=== PATIENT | male | born 1960 | race Caucasian/White ===

== ENCOUNTER → 2016-08-30 | Outpatient (CLI) | payer BC ==
[~2016-08-30] MED LIST: ASPIRIN81 M1 PO; ATENOLOL50 MG PO; CRESTOR PO; LEVITRA5 MG PO; LIDODERM30 EA TOP; LISINOPRIL5 MG PO; LOVAZA1 G PO; MOBIC PO; MULTIVITAMIN1 UDCAP PO; PANTOPRAZOLE SO40 MG PO; SIMVASTATIN40 MG PO; VIAGRA PO; VOLTAREN GEL
--- NOTE | ~2016-08-30 | MR176 ---
[facility] A Service of [facility] & [facility] RADIOLOGY TEXT RESULTS PATIENT: MAURICE COOK LOCATION: [facility] : 60 UNIT #: [id number] AGE: [address]: Tati Hickey MD SEX: M ORDER DR: [id number] [address] [address] [id number] O MR#: [id number] Acc #: [id number] NAME: MAURICE COOK. : 1960 SEX: M STUDY DATE/TIME: 08/30/2016 14:41 UNIT: [facility] ROOM: STUDY DESCRIPTION: MR Thoracic Wo Contrast Attending Physician: Tati Hickey M.D. Referring Physician: Tati Hickey M.D. Ordering Physician: Tati Hickey M.D. Primary Care Physician: Tati Hickey M.D. MRI CENTER REPORT This report is preliminary unless electronic signature is present. EXAM MRI of the thoracic spine without contrast dated 08/30/2016 COMPARISON STUDIES Plain films thoracic spine dated 08/22/2016. No prior CT or MRI thoracic spine studies. HISTORY Mid back pain particularly in the upper right side for 3 months. TECHNIQUE Multisequence multiplanar imaging of the thoracic spine was obtained without contrast. FINDINGS Vertebral body heights and alignment are preserved. Degenerative disc disease is noted at multiple levels, relatively worse at T9 and C7-T1. Cord demonstrates expected course, caliber and signal. Costovertebral and facet joint arthritic changes are noted in some of the levels. Relatively moderate to severe costovertebral joint changes are noted in bilateral T9 (right greater than left), left T9-10, left T7-8, left T6-7, bilateral T5-6. Mild facet changes are noted in bilateral T8-9, T9-10, T10-11. No significant canal stenosis. Central to right subarticular focal protrusion is noted at T8-9 with mild mass effect on the adjacent thecal sac. No significant cord compression. Tiny right subarticular T7-8 protrusion is also seen. No neuroforaminal narrowing is noted in the thoracic spine. IMPRESSION 1. Degenerative disc disease is at multiple levels, worse at T8-9 followed by T7-8. 2. Costovertebral joint arthritic changes and [facility] of [facility] & [facility] RADIOLOGY TEXT RESULTS PATIENT: MAURICE COOK LOCATION: [facility] : 60 UNIT #: [id number] AGE: [address]: Tati Hickey MD SEX: M ORDER DR: multiple levels as described above. 3. Minimal facet changes are noted in the lower T spine. 4. Refer to MRI cervical spine study for description of cervical spine findings. Dictated by... Debora Anders M.D. THIS IS AN ELECTRONICALLY VERIFIED REPORT Debora Anders M.D. at 08/31/2016 4:56 PM MANUEL/eddie TD: 08/31/2016 16:38 JOB #: [id number] MRI CENTER REPORT Page 1 of 1
--- NOTE | ~2016-08-30 | MR32 ---
[facility] A Service of [facility] & [facility] RADIOLOGY TEXT RESULTS PATIENT: MAURICE COOK LOCATION: [facility] : 60 UNIT #: [id number] AGE: [address]: Tati Hickey MD SEX: M ORDER DR: [id number] [address] [address] [id number] O MR#: [id number] Acc #: [id number] NAME: MAURICE COOK. : 1960 SEX: M STUDY DATE/TIME: 08/30/2016 14:19 UNIT: [facility] ROOM: STUDY DESCRIPTION: MR Cervical Wo Contrast Attending Physician: Tati Hickey M.D. Referring Physician: Tati Hickey M.D. Ordering Physician: Tati Hickey M.D. Primary Care Physician: Tati Hickey M.D. MRI CENTER REPORT This report is preliminary unless electronic signature is present. EXAM MRI of the cervical spine without contrast dated 08/30/2016. COMPARISON STUDIES Plain film cervical spine dated 08/22/2016. HISTORY Neck pain which increasing with bilateral upper extremity pain, right greater than left. Numbness and tingling has been going on for three months. FINDINGS Multisequence, multiplanar imaging of the cervical spine was obtained without contrast. There is disc osteophyte complexes at multiple levels. Posterior endplate osteophytes are at multiple levels, worse at C3. There appears to be mild retrolisthesis of C3 with respect to C4 and C5 with respect to C6, likely relating to posterior endplate osteophyte. Cord demonstrates normal course, caliber. Faint increased T2 signal is suspected in the sagittal T2 sequence but is not well correlated in the axials. It is unclear if it is artifactual or true cord signal change. Imaged posterior fossa and craniovertebral junction are grossly unremarkable. Pre and paravertebral soft tissues do not demonstrates any significant abnormality. C2-3: Disc osteophyte complex with small central protrusion. Left uncinate spur with moderate left facet hypertrophic change and moderate left neural foraminal narrowing. No canal stenosis. C3-4: Disc osteophyte complex with left uncinate spur. Mild bilateral facet changes are noted with severe left neural foraminal narrowing. Borderline sized to mild canal stenosis. [facility] A Service of [facility] RADIOLOGY TEXT RESULTS PATIENT: MAURICE COOK LOCATION: [facility] : 60 UNIT #: [id number] AGE: [address]: Tati Hickey MD SEX: M ORDER DR: C4-5: Disc osteophyte complex with mild bilateral facet changes and irfhndyu-ur-hrfprj left neural foraminal narrowing with borderline sized to mild canal stenosis. C5-6: Disc osteophyte complex which is asymmetrically prominent in the right central to subarticular region. Moderate canal stenosis is seen. Mild bilateral facet hypertrophic changes are noted with severe left, bilw-la-liijthpv right neural foraminal narrowing. C6-7: There is a disc osteophyte complex with left central disc herniation. This extends up to the central region of C7-T1. It is unclear if there is a disc extrusion with inferior migration from C6-7 or superior migration from C7-T1. It measures about 2.7 cm in height. There is cfwuqbxu-eu-zgbhvh canal stenosis with wuyyqksq-yi-fvcrwt left, mild right neural foraminal narrowing. Mild bilateral facet changes are seen. C7-T1: Disc extrusion as described above at C6-7 level. There is onds-os-ehmwxhee canal stenosis. Mild disc bulge is seen. No significant neural foraminal narrowing. Mild bilateral facet changes. IMPRESSION 1. Degenerative changes are noted at multiple levels. 2. There is a disc extrusion which extends from the level of C6-7 to the level C7-T1. It is unclear if it arises from C6-7 and extends inferiorly or arises from C7-T1 and extends superiorly. It total measures about 2.5 cm in height. 3. Varying degrees of canal stenosis and neural foraminal narrowing as described above. 4. Cord is displaced posteriorly at the level of C6-7 extending to C7-T1 due to the disc herniation. Faint increased T2 signal is suspected in the sagittal T2 sequence but is not well correlated in the axials. It is unclear if it is artifactual or true cord signal change. NOTE Cord signal change. Dictated by... Debora Anders M.D. THIS IS AN ELECTRONICALLY VERIFIED REPORT Debora Anders M.D. at 08/31/2016 4:56 PM CPR/tmw TD: 08/31/2016 16:36 [facility] A Service of [facility] & [facility] RADIOLOGY TEXT RESULTS PATIENT: MAURICE COOK [id number] 60 UNIT #: [id number] AGE: [address]: Tati Hickey MD SEX: M ORDER DR: JOB #: [id number] MRI CENTER REPORT Page 1 of 1
== END | disposition home or self-care (01) ==
LOC: SMRI 08:42
DX: M19.90 Unspecified osteoarthritis, unspecified site (principal); M54.9 Dorsalgia, unspecified; R52 Pain, unspecified; R20.2 Paresthesia of skin; R53.83 Other fatigue; M51.34 Other intervertebral disc degeneration, thoracic region; M46.94 Unspecified inflammatory spondylopathy, thoracic region; M47.812 Spondylosis without myelopathy or radiculopathy, cervical region; M50.20 Other cervical disc displacement, unspecified cervical region; M48.02 Spinal stenosis, cervical region
CPT/HCPCS: 72141; 72146

== ENCOUNTER → 2016-09-27 | Outpatient (CLI) | payer BC ==
--- NOTE | ~2016-09-27 | CT138 ---
[facility] A Service of [facility] & [facility] RADIOLOGY TEXT RESULTS PATIENT: MAURICE COOK LOCATION: [facility] : 60 UNIT #: [id number] AGE: [address]: Tati Hickey MD SEX: M ORDER DR: [id number] [facility] [address] [place], [place] [address] [id number] O MR#: [id number] Acc #: [id number] NAME: MAURICE COOK. : 1960 SEX: M STUDY DATE/TIME: 09/27/2016 13:27 UNIT: [facility] ROOM: STUDY DESCRIPTION: CT Lung screening initial Attending Physician: Tati Hickey M.D. Referring Physician: Tati Hickey M.D. Ordering Physician: Tati Hickey M.D. Primary Care Physician: Tati Hickey M.D. MEDICAL IMAGING REPORT This report is preliminary unless electronic signature is present EXAM Lung cancer screening, initial study. INDICATION Cough for one month. Lung cancer screening. Current smoker. TECHNIQUE The study is done with low dose technique and axial 2 mm images were generated through the chest. Sagittal and coronal reconstructions were generated. The CT DI volume in mGy is 2.6, the DLP in mGy/cm is 85. This CT exam was performed with one or more of the following radiation dose reduction techniques: Automatic exposure control, adjustment of mA and/or kV according to patient size, and iterative reconstruction. COMPARISON 08/11/15 FINDINGS The thyroid gland is normal. The aorta is normal in size. There is no mediastinal or hilar adenopathy. The visualized portions of the upper abdomen show surgical clips in the gallbladder fossa and are otherwise normal. There is a roughly triangular shaped area of density measuring 2.7 x 1.9 cm in the right middle lobe close to the hilum. This is likely inflammatory or infectious. There is a 5 x 3 mm pleural based nodule along the major fissure on the left side on image 65. There is a calcified granuloma in the left lower lobe. The small nodule along the major fissure on the left side was present on 08/11/15. The right middle lobe density was not present. The lungs are otherwise clear. IMPRESSION 1. There is a 2.7 x 1.9 cm triangular shaped density in the central STS. [facility] A Service of [facility] & [facility] RADIOLOGY TEXT RESULTS PATIENT: MAURICE COOK LOCATION: [facility] : 60 UNIT #: [id number] AGE: [address]: Tati Hickey MD SEX: M ORDER DR: middle lobe. I cannot visualize this on the spectacle truer film and I doubt it would be visible on chest x-ray given its location. It was not present 08/11/15 and is likely inflammatory of infectious. 2. There is a stable 4-5 mm nodule along the major fissure in the left lung. 3. Calcified granuloma left lower lobe. 4. Otherwise, normal. Lung-RADS category 4A. Suspicious finding. In this case the finding is likely inflammatory or infectious and a 3-month followup low dose CT scan is recommended to document resolution. Dictated by... Edwar Collazo M.D. THIS IS AN ELECTRONICALLY VERIFIED REPORT Edwar Collazo M.D. at 09/28/2016 11:41 AM OSORIO/alejandra TD: 09/28/2016 10:22 JOB #: [id number] MEDICAL IMAGING REPORT Page 1 of 1 COPY
== END | disposition home or self-care (01) ==
LOC: CCAT 12:56
DX: F17.210 Nicotine dependence, cigarettes, uncomplicated (principal); J98.4 Other disorders of lung; R91.1 Solitary pulmonary nodule; J84.10 Pulmonary fibrosis, unspecified
CPT/HCPCS: G0297